=== PATIENT | male | born 1990 | race African-American/Black ===

== ENCOUNTER 2017-10-06 23:16 | Emergency (ER) | payer MEDICAID ==
[~2017-10-06] VITALS: Ht 180.3 cm; Wt 64.4 kg
[2017-10-06 23:35] VITALS: Ht 180.3 cm; Wt 64.4 kg
[2017-10-07 01:16] VITALS: BP 108/64
== END 2017-10-07 01:16 | disposition home or self-care (01) ==
LOC: ED 23:16
DX: S93.601A Unspecified sprain of right foot, initial encounter (principal); W13.8XXA Fall from, out of or through other building or structure, initial encounter; Y93.89 Activity, other specified; Y92.89 Other specified places as the place of occurrence of the external cause; Y99.8 Other external cause status

== ENCOUNTER 2020-06-29 16:40 | Emergency (ER) | payer OTHER, MEDICAID ==
[~2020-06-29] VITALS: Ht 175.3 cm; Wt 71.7 kg
[2020-06-29 17:12] VITALS: BP 100/67; Ht 175.3 cm; Wt 71.7 kg
[2020-06-29] MEDS ORDERED: HYDROCODONE BIT1 T51 PO (18:54)
== END 2020-06-29 19:30 | disposition home or self-care (01) ==
LOC: ED 16:40
DX: S70.02XA Contusion of left hip, initial encounter (principal); S60.051A Contusion of right little finger without damage to nail, initial encounter; V49.49XA Driver injured in collision with other motor vehicles in traffic accident, initial encounter; Y93.I9 Activity, other involving external motion; Y92.413 State road as the place of occurrence of the external cause; Y99.8 Other external cause status
CPT/HCPCS: A4570